=== PATIENT | female | born 1970 | race African-American/Black ===

== ENCOUNTER 2016-09-29 02:01 | Emergency (ER) | payer SELFPAY ==
[2016-09-29] MEDS ORDERED: Triamcinolone 40 MG/ML VIAL ONE (02:26)
== END 2016-09-29 02:37 | disposition home or self-care (01) ==
LOC: BURERS 02:01
DX: L25.2 Unspecified contact dermatitis due to dyes (principal); I10 Essential (primary) hypertension; F32.9 Major depressive disorder, single episode, unspecified; Z79.899 Other long term (current) drug therapy
CPT/HCPCS: J3301